=== PATIENT | male | born 1940 | race Caucasian/White ===

== ENCOUNTER → 2018-07-28 | Outpatient (CLI) | payer OTHER ==
[~2018-07-28] MED LIST: ASPIR 8181 MG PO; ATENOLOL 25 MG25 M1 PO; BACTRIM DS TAB1 EACH PO; EDLUAR10 MG; FLOMAX0.4 MG PO; HYDROCODONE-AP1 EAC6 PO; LASIX 20 MG TAB20 MG PO; LIPITOR 20 MG T20 M1 PO; MOBIC15 MG PO; NEURONTIN300 MG PO; NITROGLYCERIN0.4 MG PO; NORCO 5-325 TA1 EAC1 PO; NORVASC5 MG PO; OMEPRAZOLE 20 M20 M1 PO; ONDANSETRON HCL4 M2 PO; VIAGRA100 MG PO
== END ==
LOC: M.ULTRA 09:12
DX: Z13.6 Encounter for screening for cardiovascular disorders (principal); I71.4 Abdominal aortic aneurysm, without rupture; J43.1 Panlobular emphysema; I50.41 Acute combined systolic (congestive) and diastolic (congestive) heart failure; I65.23 Occlusion and stenosis of bilateral carotid arteries; I48.2 Chronic atrial fibrillation; Z72.89 Other problems related to lifestyle; Z87.891 Personal history of nicotine dependence

== ENCOUNTER → 2018-11-11 | Outpatient (CLI) | payer OTHER | LOC: M.RAD 16:39 | DX: S82.391D Other fracture of lower end of right tibia, subsequent encounter for closed fracture with routine healing (principal); S82.491D Other fracture of shaft of right fibula, subsequent encounter for closed fracture with routine healing; M19.071 Primary osteoarthritis, right ankle and foot; J43.1 Panlobular emphysema; I65.23 Occlusion and stenosis of bilateral carotid arteries; I48.2 Chronic atrial fibrillation; X58.XXXD Exposure to other specified factors, subsequent encounter ==

== ENCOUNTER → 2018-12-14 | Outpatient (CLI) | payer OTHER | LOC: M.RAD 13:39 | DX: I51.7 Cardiomegaly (principal); M47.897 Other spondylosis, lumbosacral region; R10.31 Right lower quadrant pain; G89.29 Other chronic pain; Z68.35 Body mass index [BMI] 35.0-35.9, adult; Z98.890 Other specified postprocedural states ==

== ENCOUNTER → 2019-04-19 | Outpatient (CLI) | payer OTHER | LOC: M.RAD 12:40 | DX: M25.78 Osteophyte, vertebrae (principal); I10 Essential (primary) hypertension; R05 Cough; R06.2 Wheezing; Z87.01 Personal history of pneumonia (recurrent) ==

== ENCOUNTER → 2019-05-05 | Outpatient (CLI) | payer OTHER | LOC: M.ULTRA 15:36 | DX: M79.604 Pain in right leg (principal) ==

== ENCOUNTER → 2019-12-13 | Outpatient (CLI) | payer MEDICARE | LOC: M.RAD 17:08 | DX: M48.54XA Collapsed vertebra, not elsewhere classified, thoracic region, initial encounter for fracture (principal); E11.9 Type 2 diabetes mellitus without complications; J43.1 Panlobular emphysema; I48.20 Chronic atrial fibrillation, unspecified; I70.0 Atherosclerosis of aorta; M12.88 Other specific arthropathies, not elsewhere classified, other specified site; Z95.0 Presence of cardiac pacemaker; Z98.890 Other specified postprocedural states ==

== ENCOUNTER 2019-12-16 21:09 | Emergency (ER) | payer MEDICARE ==
[~2019-12-16] VITALS: Ht 170.2 cm; Wt 110.2 kg
[2019-12-16 22:02] LABS: ABSOLUTE EOSINOPHILS 0.2 thou/uL (0.0-0.7); ABSOLUTE LYMPHOCYTES 1.1 thou/uL (0.8-5.3); ABSOLUTE MONOCYTES 0.4 thou/uL (0.0-1.2); ABSOLUTE NEUTROPHILS 2.3 thou/uL (1.6-8.1); BASOPHILS 0.9 %; EOSINOPHILS 4.7 %; HEMATOCRIT 39.8 % (42.0-52.0); HEMOGLOBIN 13.7 gm/dL (14.0-18.0); MCH 32.4 pg (26.0-34.0); MCHC 34.4 g/dL (28.0-37.0); MCV 94.1 fL (80.0-100.0); MONOCYTES 9.2 %; MPV 7.6 fl. (7.2-11.1); NUCLEATED RBCS 0 /100WBC; PLATELET COUNT* 169 thou/uL (150-400); POLYS 57.2 %; RBC 4.23 mil/uL (4.50-6.00); WBC 3.9 thou/uL (4.0-11.0)
[2019-12-16 22:06] LABS: CALCIUM 8.5 mg/dL (8.5-10.1); CREATININE 1.1 mg/dL (0.6-1.3); POTASSIUM 3.4 mmol/L (3.5-5.1)
[2019-12-16 22:09] LABS: INR 1.2; PROTIME 11.9 Seconds (9.20-11.50)
[2019-12-16 22:10] LABS: ALBUMIN 3.8 g/dL (3.4-5.0); TOTAL BILIRUBIN 1.1 mg/dL (<0.1-1.0); TOTAL PROTEIN 6.7 g/dL (6.4-8.2)
[2019-12-16 23:00] VITALS: BP 146/70
== END 2019-12-16 23:00 | disposition home or self-care (01) ==
LOC: M.ERS 21:09
PROVIDERS: Emergency Medicine
DX: M25.521 Pain in right elbow (principal); M79.89 Other specified soft tissue disorders; T50.8X5A Adverse effect of diagnostic agents, initial encounter; I50.9 Heart failure, unspecified; I25.10 Atherosclerotic heart disease of native coronary artery without angina pectoris; Z88.8 Allergy status to other drugs, medicaments and biological substances; Y93.89 Activity, other specified; Y92.89 Other specified places as the place of occurrence of the external cause; Y99.8 Other external cause status

== ENCOUNTER → 2019-12-16 | Outpatient (CLI) | payer MEDICARE ==
[2019-12-16 14:29] LABS: CREATININE 1.1 mg/dL (0.6-1.3)
== END ==
LOC: M.LAB 14:00 → M.CT 15:00
PROVIDERS: Internal Medicine
DX: K80.20 Calculus of gallbladder without cholecystitis without obstruction (principal); K57.30 Diverticulosis of large intestine without perforation or abscess without bleeding; M47.816 Spondylosis without myelopathy or radiculopathy, lumbar region; K44.9 Diaphragmatic hernia without obstruction or gangrene; N28.1 Cyst of kidney, acquired; I70.0 Atherosclerosis of aorta; I48.20 Chronic atrial fibrillation, unspecified; E11.9 Type 2 diabetes mellitus without complications; J43.1 Panlobular emphysema; M54.5 Low back pain; Z95.0 Presence of cardiac pacemaker; Z87.81 Personal history of (healed) traumatic fracture; Z96.642 Presence of left artificial hip joint

== ENCOUNTER → 2020-03-24 | Outpatient (CLI) | payer MEDICARE | LOC: M.CT 11:26 | DX: M47.816 Spondylosis without myelopathy or radiculopathy, lumbar region (principal) ==

== ENCOUNTER → 2020-04-18 | Outpatient (CLI) | payer MEDICARE ==
[~2020-04-18] MED LIST changes: +ASA81BEC PO; +ELIQUIS5 MG PO; +FLUOROPLEX30 GM TOP; +HYDROCODON-ACE1 EAC8 PO; +IMDUR 30 MG TAB30 M1 PO; +ISOSORBIDE MONO20 MG PO; +LASIX 40 MG TAB40 M2 PO; +METOPROLOL PO; +NITROGLYCERIN0.4 MG SUBLING; +TEMAZEPAM30 MG PO; +TOPROL XL25 MG PO
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
== END ==
LOC: M.PC 04:48
PROVIDERS: ATTEND Anesthesiology Pain Medicine
DX: M48.061 Spinal stenosis, lumbar region without neurogenic claudication (principal); I25.10 Atherosclerotic heart disease of native coronary artery without angina pectoris; I10 Essential (primary) hypertension; M19.90 Unspecified osteoarthritis, unspecified site

== ENCOUNTER → 2020-04-27 | Outpatient (CLI) | payer MEDICARE ==
[~2020-04-27] MED LIST changes: +LORCET 5-325 M1 EACH PO
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
== END ==
LOC: M.PC 02:29
PROVIDERS: ATTEND Anesthesiology Pain Medicine
DX: M48.061 Spinal stenosis, lumbar region without neurogenic claudication (principal); I25.10 Atherosclerotic heart disease of native coronary artery without angina pectoris; I10 Essential (primary) hypertension; M06.9 Rheumatoid arthritis, unspecified; E78.00 Pure hypercholesterolemia, unspecified; G62.9 Polyneuropathy, unspecified

== ENCOUNTER → 2020-05-08 | Day surgery (SDC) | payer MEDICARE ==
[2020-05-08 10:48] LABS: HEMATOCRIT 45.7 % (42.0-52.0); HEMOGLOBIN 15.9 gm/dL (14.0-18.0); MCH 33.6 pg (26.0-34.0); MCHC 34.7 g/dL (28.0-37.0); MCV 96.6 fL (80.0-100.0); MPV 7.3 fl. (7.2-11.1); RBC 4.73 mil/uL (4.50-6.00); RDW-CV 14.5 % (10.5-14.5); WBC 4.9 thou/uL (4.0-11.0)
[2020-05-08 11:03] LABS: APTT 25.3 Seconds (25.0-31.3); INR 1.1; PROTIME 10.9 Seconds (9.20-11.50)
[2020-05-08 11:16] LABS: CREATININE 1.1 mg/dL (0.6-1.3)
--- NOTE | 2020-05-08 17:08 | EKG ---
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: : 1940 Requested By: Michi Wolf Order Number: [id number] Reading MD: Levy Boothe Measurements Intervals [place] Rate: 74 P: -3 NH: 210 QRS: -37 QRSD: 104 T: -51 QT: 396 QTc: 440 Interpretive Statements Sinus rhythm Left axis deviation Abnormal R-wave progression, late transition Abnrm T, consider ischemia, anterolateral lds No previous ECG available for comparison Electronically Signed On 05-08-2020 17:08:11 CDT by Levy Boothe [email or web address] <ELECTRONICALLY SIGNED> By: Levy Boothe MD, [facility] 05/08/20 1708 1057 1057 Levy Boothe MD, [facility] /EPI
--- NOTE | 2020-05-10 14:07 | PATH ---
[address] [address] PATHOLOGY RPT PROCEDURE Name: DESTIN CELAYA Room: [facility]#: [id number] Admission: 05/08/20 Date of : 40 Discharge: Report #: [id number] Path Case #: [id number] [facility] Accession Number: [id number] . 01 Material submitted: . anus - ANAL FISTULA . 01 Clinical history: . Anal fistula . 02 Diagnosis: Anal fistula: - Benign skin with dermal and subcutaneous chronic inflammation and fibrosis, suggesting fistula tract. . (DARCI:mml; 05/10/2020) [facility] 05/10/2020 1212 Local . 02 Electronically signed: . Young Valenzuela MD, Pathologist NPI- [id number] . 01 Gross description: . The specimen is received in formalin, labeled "Jacqueline, [place], anal fistula" and consists of an elliptical segment of focally crusted velez-menendez skin measuring 2.9 x 1.6 cm excised to a depth of 1.5 cm. Sectioning reveals a possible fistula tract. The specimen is entirely submitted in A1-A3. (SDY; 05/09/2020) [facility] 05/10/2020 1211 Local . 02 Pathologist provided ICD-10: L98.9, L90.5 . 02 CPT . 300148 Specimen Comment: A courtesy copy of this report has been sent to [phone], [phone]- Specimen Comment: [id number] Specimen Comment: Report sent to / DR DONAHUE Performed at: [address], [place] [id number] MD Antonio Barr MD Phone: [phone] Performed at: 02 [facility] [address], [place], [place] [id number] MD Young Valenzuela MD Phone: [phone]
--- NOTE | 2020-05-11 13:14 | OP ---
[facility] [address] [place] [address] OPERATIVE REPORT Name: ASHISH CELAYA Room: [facility]#: [id number] Admission: 05/08/20 Attend Phys: Michi Wolf Discharge: Date of : 40 Report #: [id number] THIS REPORT FOR: //name// cc: Levy Solano MD, David L. MD ~ THIS REPORT FOR: //name// CC: Levy Wolf DATE OF SERVICE: 05/08/2020 PREOPERATIVE DIAGNOSIS: Fistula in ano. POSTOPERATIVE DIAGNOSIS: Fistula in ano. OPERATION: Rectal exam under anesthesia with anal fistulotomy. SURGEON: Michi Wolf MD ANESTHESIA: General. ESTIMATED BLOOD LOSS: Minimal. SPECIMEN: Perianal skin with fistula tract. DESCRIPTION OF PROCEDURE: After informed consent was obtained, the patient was brought to the operating room and placed supine. SCDs were placed and working, preoperative antibiotics were administered, general anesthesia was induced. The patient was placed in the lithotomy position. Digital rectal exam was performed. This did not demonstrate any abnormalities. A bivalve speculum was inserted. This did not demonstrate any abnormalities. He had small internal hemorrhoids. He had an area on the left perianal skin, which was somewhat scaly. I probed the tract. I was then able to grasp it and excised it using cautery. This did not involve the sphincter. This was extrasphincteric. The tract was then fully excised. This left a healthy perianal skin. The area was then irrigated and packed with sterile gauze. Sterile dressings were applied. COMPLICATIONS: [place] [address] OPERATIVE REPORT Name: ASHISH CELAYA Room: [facility]#: [id number] Admission: 05/08/20 Attend Phys: Michi Wolf Discharge: Date of : 40 Report #: [id number] DISPOSITION: The patient was taken to recovery in satisfactory condition. <ELECTRONICALLY SIGNED> By: Michi Wolf MD 05/11/20 1314 1159 [id number] Wolf MD /nt
== END | disposition home or self-care (01) ==
LOC: M.SUR 10:26
PROVIDERS: ATTEND Surgery
DX: K60.3 Anal fistula (principal); Z11.59 Encounter for screening for other viral diseases; Z88.8 Allergy status to other drugs, medicaments and biological substances; Z79.899 Other long term (current) drug therapy

== ENCOUNTER → 2020-07-13 | Outpatient (CLI) | payer MEDICARE ==
[~2020-07-13] MED LIST changes: +HYDROCODON-ACE1 EAC5 PO
--- NOTE | 2020-07-25 13:31 | H ---
[place] [address] HISTORY AND PHYSICAL Name: ASHISH CELAYA Room: [facility] PERLA Liz#: [id number] Admission: 07/13/20 Attend Phys: Elio Matos MD Discharge: Date of : 40 Report #: [id number] THIS REPORT FOR: //name// cc: Bobbi Youssef MD, Lin W. MD ~ CC: Bobbi Matos DATE OF SERVICE: 07/13/2020 CHIEF COMPLAINT: Low back pain and a wound in the right ankle. HISTORY: The patient is a 79-year-old gentleman who has been followed in the pain clinic because of low back pain. He has a history of spinal stenosis with narrowing at L3-L4. He continues to have some problem with his ankle. He recently underwent surgery for this anal fistula repair. This was in April. He recently fell. He is not sure exactly what cause it. He denies hitting his head. He has returned today for renewal of his medications. He rates his pain as a 2/10. ALLERGIES: NORVASC. CURRENT MEDICATIONS: Eliquis 5 mg 1 p.o. b.i.d., Isosorbide 20 mg, temazepam 30 mg, Flomax 0.4 mg, metoprolol 12.5 mg, Lasix 20 mg, omeprazole 20 mg, Lipitor 20 mg, gabapentin 300 mg t.i.d. PAIN CLINIC ASSESSMENT/PQRS: 1. The patient does have some osteoarthritic changes in the low back. He is not being treated for rheumatoid arthritis. 2. Height 5 feet 8 inches, weight 228 pounds, BMI to be calculated. 3. Blood pressure 157/93, heart rate 64, respiratory rate 16, room air saturation 94%, temperature 98.0. 4. Pain intensity 12/06. 5. Fall history: The patient did fall with the last week. He did not need medical attention. 6. Hypertension. The patient is being treated for hypertension. 7. Opioids greater than 6 weeks. The patient receives medications from his primary physician. 8. Risk assessment tool, low for opioids. 9. Functional assessment tool reviewed. 10. Recreational drug use: The patient denies. 11. Tobacco: The patient denies. Has not smoked since . 12. Alcohol: The patient occasionally drinks alcoholic beverages. PHYSICAL EXAMINATION: GENERAL: The patient is a well-developed, well-[place] [address] HISTORY AND PHYSICAL Name: ASHISH CELAYA Room: [facility]#: [id number] Admission: 07/13/20 Attend Phys: Elio Matos MD Discharge: Date of : 40 Report #: [id number] his stated age. He is alert and oriented x 3. His affect is appropriate. Speech is fluent. HEENT: Normocephalic, atraumatic. Extraocular eye muscles intact. Sclerae nonicteric. Mucous membranes are moist. The patient is wearing a facial covering. NECK: Without adenopathy. LUNGS: Generally clear. HEART: Regular. ABDOMEN: Nontender. EXTREMITIES: The patient complains of some pain and problems in the right ankle with a wound that has continued to be watched over by the wound clinic. He has stitches in his left arm after a fall last week. Has Coban wrapping around it. Upper extremity muscle strength as described above. Lower extremity as described below. The patient does note increased weakness after prolonged standing. IMPRESSION: 1. Right leg infection. 2. Recent surgery for fistula in April, which has improved. 3. Right leg/ankle infection. 4. Spinal stenosis with severe narrowing at the L3-L4 area down to 6 mm. 5. Hypertension. 6. Joint disease/arthritis. 7. Coronary artery disease. 8. Neuropathy. 9. Hypercholesterolemia. RECOMMENDATION: We discussed treatment options with the patient. At this juncture, we will continue with his medications. He feels that the medications are helpful. A script for his medications will be rewritten. A script for his medications has been sent to his pharmacy. They include hydrocodone 10/325 one p.o. b.i.d. He will also continue with gabapentin 300 mg t.i.d. <ELECTRONICALLY SIGNED> By: Elio Matos MD 07/25/20 1331 22 53Joseluis. Jaxson Matos MD /[facility]
== END ==
LOC: M.PC 09:58
PROVIDERS: ATTEND Anesthesiology Pain Medicine
DX: M48.061 Spinal stenosis, lumbar region without neurogenic claudication (principal); M54.5 Low back pain; I25.10 Atherosclerotic heart disease of native coronary artery without angina pectoris; I10 Essential (primary) hypertension; E78.00 Pure hypercholesterolemia, unspecified; M19.90 Unspecified osteoarthritis, unspecified site; Z98.890 Other specified postprocedural states

== ENCOUNTER → 2020-07-17 | Outpatient (CLI) | payer MEDICARE | LOC: M.WC 09:00 | PROVIDERS: ATTEND Surgery | DX: I87.311 Chronic venous hypertension (idiopathic) with ulcer of right lower extremity (principal); L97.812 Non-pressure chronic ulcer of other part of right lower leg with fat layer exposed; E78.5 Hyperlipidemia, unspecified; I25.10 Atherosclerotic heart disease of native coronary artery without angina pectoris; M48.00 Spinal stenosis, site unspecified; M19.90 Unspecified osteoarthritis, unspecified site; Z87.891 Personal history of nicotine dependence; Z95.828 Presence of other vascular implants and grafts ==

== ENCOUNTER → 2020-07-24 | Outpatient (CLI) | payer MEDICARE | LOC: M.WC 02:27 | PROVIDERS: ATTEND Surgery | DX: I87.311 Chronic venous hypertension (idiopathic) with ulcer of right lower extremity (principal); L97.812 Non-pressure chronic ulcer of other part of right lower leg with fat layer exposed; E78.5 Hyperlipidemia, unspecified; I25.10 Atherosclerotic heart disease of native coronary artery without angina pectoris; M19.90 Unspecified osteoarthritis, unspecified site; M48.00 Spinal stenosis, site unspecified; Z87.891 Personal history of nicotine dependence ==

== ENCOUNTER → 2020-07-31 | Outpatient (CLI) | payer MEDICARE | LOC: M.WC 03:43 | PROVIDERS: ATTEND Surgery | DX: I87.311 Chronic venous hypertension (idiopathic) with ulcer of right lower extremity (principal); L97.812 Non-pressure chronic ulcer of other part of right lower leg with fat layer exposed; E78.5 Hyperlipidemia, unspecified; I25.10 Atherosclerotic heart disease of native coronary artery without angina pectoris; M19.90 Unspecified osteoarthritis, unspecified site; M48.00 Spinal stenosis, site unspecified; Z87.891 Personal history of nicotine dependence ==

== ENCOUNTER → 2020-08-07 | Outpatient (CLI) | payer MEDICARE | LOC: M.WC 03:53 | PROVIDERS: ATTEND Surgery | DX: I87.311 Chronic venous hypertension (idiopathic) with ulcer of right lower extremity (principal); L97.812 Non-pressure chronic ulcer of other part of right lower leg with fat layer exposed; E78.5 Hyperlipidemia, unspecified; I25.10 Atherosclerotic heart disease of native coronary artery without angina pectoris; M48.00 Spinal stenosis, site unspecified; M19.90 Unspecified osteoarthritis, unspecified site; Z87.891 Personal history of nicotine dependence ==

== ENCOUNTER → 2020-08-14 | Outpatient (CLI) | payer MEDICARE | LOC: M.WC 08-11 10:34 | PROVIDERS: ATTEND Surgery | DX: I87.311 Chronic venous hypertension (idiopathic) with ulcer of right lower extremity (principal); L97.812 Non-pressure chronic ulcer of other part of right lower leg with fat layer exposed; L97.312 Non-pressure chronic ulcer of right ankle with fat layer exposed; E78.5 Hyperlipidemia, unspecified; I25.10 Atherosclerotic heart disease of native coronary artery without angina pectoris; M19.90 Unspecified osteoarthritis, unspecified site; M48.00 Spinal stenosis, site unspecified; Z87.891 Personal history of nicotine dependence ==

== ENCOUNTER → 2020-08-21 | Outpatient (CLI) | payer MEDICARE | LOC: M.WC 05:34 | PROVIDERS: ATTEND Surgery | DX: I87.311 Chronic venous hypertension (idiopathic) with ulcer of right lower extremity (principal); L97.812 Non-pressure chronic ulcer of other part of right lower leg with fat layer exposed; L97.312 Non-pressure chronic ulcer of right ankle with fat layer exposed; L03.115 Cellulitis of right lower limb; E78.5 Hyperlipidemia, unspecified; I25.10 Atherosclerotic heart disease of native coronary artery without angina pectoris; M19.90 Unspecified osteoarthritis, unspecified site; M48.00 Spinal stenosis, site unspecified; Z87.891 Personal history of nicotine dependence ==

== ENCOUNTER → 2020-08-24 | Outpatient (CLI) | payer MEDICARE | LOC: M.WC 07:58 | PROVIDERS: ATTEND Surgery | DX: I87.311 Chronic venous hypertension (idiopathic) with ulcer of right lower extremity (principal); L97.812 Non-pressure chronic ulcer of other part of right lower leg with fat layer exposed; L97.312 Non-pressure chronic ulcer of right ankle with fat layer exposed; L03.115 Cellulitis of right lower limb; E78.5 Hyperlipidemia, unspecified; I25.10 Atherosclerotic heart disease of native coronary artery without angina pectoris; M19.90 Unspecified osteoarthritis, unspecified site; M48.061 Spinal stenosis, lumbar region without neurogenic claudication; Z87.891 Personal history of nicotine dependence ==

== ENCOUNTER → 2020-08-28 | Outpatient (CLI) | payer MEDICARE | LOC: M.WC 09:50 | PROVIDERS: ATTEND Surgery | DX: I87.311 Chronic venous hypertension (idiopathic) with ulcer of right lower extremity (principal); L97.812 Non-pressure chronic ulcer of other part of right lower leg with fat layer exposed; L97.312 Non-pressure chronic ulcer of right ankle with fat layer exposed; L03.115 Cellulitis of right lower limb; E78.5 Hyperlipidemia, unspecified; I25.10 Atherosclerotic heart disease of native coronary artery without angina pectoris; M19.90 Unspecified osteoarthritis, unspecified site; M48.061 Spinal stenosis, lumbar region without neurogenic claudication; Z87.891 Personal history of nicotine dependence ==

== ENCOUNTER → 2020-08-31 | Outpatient (CLI) | payer MEDICARE | LOC: M.WC 10:25 | PROVIDERS: ATTEND Surgery | DX: I87.311 Chronic venous hypertension (idiopathic) with ulcer of right lower extremity (principal); L97.812 Non-pressure chronic ulcer of other part of right lower leg with fat layer exposed; L97.312 Non-pressure chronic ulcer of right ankle with fat layer exposed; L03.115 Cellulitis of right lower limb; E78.5 Hyperlipidemia, unspecified; I25.10 Atherosclerotic heart disease of native coronary artery without angina pectoris; M19.90 Unspecified osteoarthritis, unspecified site; M48.061 Spinal stenosis, lumbar region without neurogenic claudication; Z87.891 Personal history of nicotine dependence ==

== ENCOUNTER → 2020-09-04 | Outpatient (CLI) | payer MEDICARE | LOC: M.WC 09:30 | PROVIDERS: ATTEND Surgery | DX: I87.311 Chronic venous hypertension (idiopathic) with ulcer of right lower extremity (principal); L97.812 Non-pressure chronic ulcer of other part of right lower leg with fat layer exposed; L97.312 Non-pressure chronic ulcer of right ankle with fat layer exposed; L03.115 Cellulitis of right lower limb; E78.5 Hyperlipidemia, unspecified; I25.10 Atherosclerotic heart disease of native coronary artery without angina pectoris; M19.90 Unspecified osteoarthritis, unspecified site; M48.061 Spinal stenosis, lumbar region without neurogenic claudication; Z87.891 Personal history of nicotine dependence ==

== ENCOUNTER → 2020-09-07 | Outpatient (CLI) | payer MEDICARE | LOC: M.WC 10:30 | PROVIDERS: ATTEND Surgery | DX: I87.311 Chronic venous hypertension (idiopathic) with ulcer of right lower extremity (principal); L97.812 Non-pressure chronic ulcer of other part of right lower leg with fat layer exposed; L97.312 Non-pressure chronic ulcer of right ankle with fat layer exposed; L03.115 Cellulitis of right lower limb; E78.5 Hyperlipidemia, unspecified; M19.90 Unspecified osteoarthritis, unspecified site; I25.10 Atherosclerotic heart disease of native coronary artery without angina pectoris; M48.00 Spinal stenosis, site unspecified; Z87.891 Personal history of nicotine dependence ==

== ENCOUNTER → 2020-09-11 | Outpatient (CLI) | payer MEDICARE | LOC: M.WC 09:53 | PROVIDERS: ATTEND Surgery | DX: I87.311 Chronic venous hypertension (idiopathic) with ulcer of right lower extremity (principal); L97.812 Non-pressure chronic ulcer of other part of right lower leg with fat layer exposed; L97.312 Non-pressure chronic ulcer of right ankle with fat layer exposed; L03.115 Cellulitis of right lower limb; E78.5 Hyperlipidemia, unspecified; I25.10 Atherosclerotic heart disease of native coronary artery without angina pectoris; M19.90 Unspecified osteoarthritis, unspecified site; M48.061 Spinal stenosis, lumbar region without neurogenic claudication; Z87.891 Personal history of nicotine dependence ==

== ENCOUNTER → 2020-09-14 | Outpatient (CLI) | payer MEDICARE | LOC: M.WC 08:27 | PROVIDERS: ATTEND Surgery | DX: I87.311 Chronic venous hypertension (idiopathic) with ulcer of right lower extremity (principal); L97.312 Non-pressure chronic ulcer of right ankle with fat layer exposed; L97.812 Non-pressure chronic ulcer of other part of right lower leg with fat layer exposed; L03.115 Cellulitis of right lower limb; E78.5 Hyperlipidemia, unspecified; I25.10 Atherosclerotic heart disease of native coronary artery without angina pectoris; M19.90 Unspecified osteoarthritis, unspecified site; M48.061 Spinal stenosis, lumbar region without neurogenic claudication; Z87.891 Personal history of nicotine dependence ==

== ENCOUNTER → 2020-09-18 | Outpatient (CLI) | payer MEDICARE | LOC: M.WC 09:22 | PROVIDERS: ATTEND Surgery | DX: I87.311 Chronic venous hypertension (idiopathic) with ulcer of right lower extremity (principal); L97.812 Non-pressure chronic ulcer of other part of right lower leg with fat layer exposed; L97.312 Non-pressure chronic ulcer of right ankle with fat layer exposed; L03.115 Cellulitis of right lower limb; T79.8XXD Other early complications of trauma, subsequent encounter; E78.5 Hyperlipidemia, unspecified; M19.90 Unspecified osteoarthritis, unspecified site; I25.10 Atherosclerotic heart disease of native coronary artery without angina pectoris; M48.061 Spinal stenosis, lumbar region without neurogenic claudication; Z87.891 Personal history of nicotine dependence; Z95.1 Presence of aortocoronary bypass graft; Z79.01 Long term (current) use of anticoagulants; X58.XXXD Exposure to other specified factors, subsequent encounter ==

== ENCOUNTER → 2020-09-25 | Outpatient (CLI) | payer MEDICARE | LOC: M.WC 09:53 | PROVIDERS: ATTEND Surgery | DX: I87.311 Chronic venous hypertension (idiopathic) with ulcer of right lower extremity (principal); L97.812 Non-pressure chronic ulcer of other part of right lower leg with fat layer exposed; L97.312 Non-pressure chronic ulcer of right ankle with fat layer exposed; L03.115 Cellulitis of right lower limb; T79.8XXD Other early complications of trauma, subsequent encounter; E78.5 Hyperlipidemia, unspecified; M19.90 Unspecified osteoarthritis, unspecified site; I25.10 Atherosclerotic heart disease of native coronary artery without angina pectoris; M48.061 Spinal stenosis, lumbar region without neurogenic claudication; Z87.891 Personal history of nicotine dependence; Z95.1 Presence of aortocoronary bypass graft; Z79.01 Long term (current) use of anticoagulants; X58.XXXD Exposure to other specified factors, subsequent encounter ==

== ENCOUNTER → 2020-10-02 | Outpatient (CLI) | payer MEDICARE | LOC: M.WC 09:52 | PROVIDERS: ATTEND Surgery | DX: I87.311 Chronic venous hypertension (idiopathic) with ulcer of right lower extremity (principal); L97.812 Non-pressure chronic ulcer of other part of right lower leg with fat layer exposed; L97.312 Non-pressure chronic ulcer of right ankle with fat layer exposed; L03.115 Cellulitis of right lower limb; T79.8XXD Other early complications of trauma, subsequent encounter; E78.5 Hyperlipidemia, unspecified; M19.90 Unspecified osteoarthritis, unspecified site; I25.10 Atherosclerotic heart disease of native coronary artery without angina pectoris; M48.061 Spinal stenosis, lumbar region without neurogenic claudication; Z87.891 Personal history of nicotine dependence; Z95.1 Presence of aortocoronary bypass graft; Z79.01 Long term (current) use of anticoagulants; W20.8XXD Other cause of strike by thrown, projected or falling object, subsequent encounter ==

== ENCOUNTER → 2020-10-09 | Outpatient (CLI) | payer MEDICARE | LOC: M.WC 09:48 | PROVIDERS: ATTEND Surgery | DX: I87.311 Chronic venous hypertension (idiopathic) with ulcer of right lower extremity (principal); L97.812 Non-pressure chronic ulcer of other part of right lower leg with fat layer exposed; L97.312 Non-pressure chronic ulcer of right ankle with fat layer exposed; L03.115 Cellulitis of right lower limb; E78.5 Hyperlipidemia, unspecified; M19.90 Unspecified osteoarthritis, unspecified site; I25.10 Atherosclerotic heart disease of native coronary artery without angina pectoris; M48.061 Spinal stenosis, lumbar region without neurogenic claudication; Z87.891 Personal history of nicotine dependence; Z95.1 Presence of aortocoronary bypass graft; Z79.01 Long term (current) use of anticoagulants ==